=== PATIENT | female | born 1990 | race Hispanic/Latino ===

== ENCOUNTER 2022-06-29 12:12 | Outpatient (CLI) | payer OTHER | END 2022-06-29 12:13 | disposition home or self-care (01) | LOC: CSHULT 12:12 | PROVIDERS: ATTEND Family Medicine | DX: Z34.82 Encounter for supervision of other normal pregnancy, second trimester (principal); Z3A.22 22 weeks gestation of pregnancy | CPT/HCPCS: 76805 ==

== ENCOUNTER 2022-10-20 02:49 | Inpatient (IN) | payer MEDICAID, OTHER ==
[2022-10-20 03:24] VITALS: BMI 26.3
[2022-10-20] MEDS ORDERED: Ondansetron PF 4 MG/2 ML Vial IVP PRN ×3 (03:30→09:33)
[2022-10-20] MEDS ORDERED: Lidocaine 1% (PF) 30 ML VIAL SC PRN (03:30)
[2022-10-20] MEDS ORDERED: NS w/ Oxytocin 30 units 500 ML IV SCH (03:30)
[2022-10-20] MEDS ORDERED: Lactated Ringer's 1,000 ML IV SCH (03:30)
[2022-10-20] MEDS ORDERED: Misoprostol 200 MCG TAB PR PRN (03:30)
[2022-10-20] MEDS ORDERED: Carboprost 250 MCG/ML AMP IM PRN (03:30)
[2022-10-20] MEDS ORDERED: Diphenoxylate HCl/Atropine Tablet PO PRN (03:30)
[2022-10-20] MEDS ORDERED: hydrALAZINE 20 MG/ML VIAL SLOW IVP PRN ×2 (03:30→09:33)
[2022-10-20] MEDS ORDERED: Ibuprofen 800 MG TAB PO PRN (03:30)
[2022-10-20] MEDS ORDERED: Methylergonovine 0.2 MG/ML VIAL IM PRN (03:30)
[2022-10-20] MEDS ORDERED: NS w/ Oxytocin 30 units 500 ML ONE (03:37)
[2022-10-20] MEDS ORDERED: Fentanyl 2 mcg/Bup 0.1% Cadd 100 ML ONE (03:38)
[2022-10-20] MEDS ORDERED: Lidocaine 1% (PF) 30 ML VIAL ONE (03:38)
[2022-10-20 03:50] LABS: Hemoglobin 11.8 g/dL (12.0-15.5); Mean Corpuscular HGB CONC 32.9 g/dL (32.0-36.0); Mean Corpuscular Hemoglobin 26.6 pg (27.0-33.0); Mean Corpuscular Volume 80.9 fl (81.6-98.3); Mean Platelet Volume 11.9 fl (7.4-10.4); Platelet Count 347 10x3/uL (150-450); RBC Distribution Width 14.2 % (11.5-14.5); Red Blood Cell (RBC) Count 4.44 10x6/uL (3.90-5.03); White Blood Cell (WBC) Count 10.4 10x3/uL (3.5-10.5)
[2022-10-20 04:11] LABS: HBSAg Index 0.14 S/CO (0-0.99); Hep B Surf Ag Non-Reactive S/CO (NonReactive)
[2022-10-20 04:13] LABS: Syphilis Antibody Nonreactive (Nonreactive); Syphilis Antibody Index 0.04 S/CO (<1.00 Non-Reactive)
[2022-10-20 04:23] LABS: Glucose 101 mg/dL (70-105)
[2022-10-20] MEDS ORDERED: diphenhydrAMINE 50 MG/ML VIAL IVP PRN (04:36)
[2022-10-20] MEDS ORDERED: Moisturizing Cream (Eucerin) 113 GM JAR TOP PRN (04:36)
[2022-10-20] MEDS ORDERED: ePHEDrine Sulfate 50 MG/10 ML VIAL SLOW IVP PRN (04:36)
[2022-10-20] MEDS ORDERED: Naloxone HCl 0.4 mg/ml Vial IVP PRN ×2 (04:36)
[2022-10-20] MEDS ORDERED: Promethazine HCl 25 MG/ML VIAL IM PRN (04:36)
[2022-10-20] MEDS ORDERED: Lactated Ringer's 500 ML IV PRN (04:36)
[2022-10-20] MEDS ORDERED: Communication Order-Pharmacy FS SCH (04:45)
[2022-10-20] MEDS ORDERED: Fentanyl 2 mcg/Bupivacaine 0.1% Cassette 100 ML EPIDURAL SCH (04:45)
[2022-10-20 05:12] LABS: SARS-CoV-2 NAA Rapid Test Not Detected (NotDetected)
[2022-10-20] MEDS ORDERED: Phytonadione Neonatal 1 MG/0.5 ML AMP ONE (08:41)
[2022-10-20] MEDS ORDERED: Erythromycin Base 0.5% Oint 1 GM TUBE ONE (08:41)
[2022-10-20] MEDS ORDERED: Hepatitis B Vaccine 10 MCG/0.5 ML SYR ONE (08:42)
[2022-10-20] MEDS ORDERED: Lanolin Ointment 7 GM TUBE TOP PRN (09:33)
[2022-10-20] MEDS ORDERED: Boostrix 0.5 ML (Tdap) VIAL (>/=7 yrs of age) IM ONE (09:33)
[2022-10-20] MEDS ORDERED: Milk Of Magnesia 30 ML UDCUP PO PRN (09:33)
[2022-10-20] MEDS ORDERED: Bisacodyl 10 MG SUPP PR PRN (09:33)
[2022-10-20] MEDS ORDERED: Docusate 100 MG CAP PO SCH (09:45)
[2022-10-20] MEDS: Ibuprofen 800 MG TAB PO SCH ×2 (12:19→20:04)
[2022-10-20] MEDS ORDERED: Ibuprofen 800 MG TAB PO SCH (14:00)
[2022-10-20] MEDS: Acetaminophen 325 MG TAB PO PRN (17:53)
[2022-10-20] MEDS: Ferrous Sulfate 325 MG TAB PO SCH (17:54)
[2022-10-20] MEDS: Docusate 100 MG CAP PO SCH (20:05)
[2022-10-21] MEDS: Ibuprofen 800 MG TAB PO SCH ×2 (03:43→12:30)
[2022-10-21] MEDS: Ferrous Sulfate 325 MG TAB PO SCH (07:57)
[2022-10-21] MEDS: Docusate 100 MG CAP PO SCH (08:41)
[2022-10-21] MEDS: Acetaminophen 325 MG TAB PO PRN (08:41)
[2022-10-21 08:51] LABS: Hemoglobin 10.1 g/dL (12.0-15.5)
[2022-10-21 16:57] VITALS: BP 118/71; TEMP 98.1
== END 2022-10-21 16:55 | disposition home or self-care (01) | DRG 807 ==
LOC: CSHLD/OP 02:49 → CSHLD 03:20 → CSHPP 10:39
PROVIDERS: ADMIT Student in an Organized Health Care Education/Training Program; ATTEND Student in an Organized Health Care Education/Training Program
PROC: 10E0XZZ Delivery of Products of Conception, External Approach (ICD-10-PCS; principal; 2022-10-20)
PROC: 10907ZC Drainage of Amniotic Fluid, Therapeutic from Products of Conception, Via Natural or Artificial Opening (ICD-10-PCS; 2022-10-20)
DX: O24.425 Gestational diabetes mellitus in childbirth, controlled by oral hypoglycemic drugs (principal); Z37.0 Single live birth; Z20.822 Contact with and (suspected) exposure to COVID-19; Z3A.38 38 weeks gestation of pregnancy; Z79.84 Long term (current) use of oral hypoglycemic drugs; Z90.49 Acquired absence of other specified parts of digestive tract; Z79.899 Other long term (current) drug therapy
CPT/HCPCS: 36415; 36416; 51702; 82947; 85014; 85018; 85027; 86780; 86850; 86900; 86901; 87340; 99285; U0002